=== PATIENT | female | born 2000 | race African-American/Black ===

== ENCOUNTER 2024-02-11 10:59 | Outpatient (CLI) | payer OTHER | END 2024-02-11 11:02 | disposition home or self-care (01) | LOC: PRENATAL 10:59 | PROVIDERS: ATTEND Obstetrics & Gynecology Maternal & Fetal Medicine | DX: O36.80X0 Pregnancy with inconclusive fetal viability, not applicable or unspecified (principal); Z36.82 Encounter for antenatal screening for nuchal translucency; Z36.9 Encounter for antenatal screening, unspecified; Z14.8 Genetic carrier of other disease; Z3A.14 14 weeks gestation of pregnancy ==

== ENCOUNTER 2024-03-24 15:13 | Outpatient (CLI) | payer OTHER | END 2024-03-24 15:14 | disposition home or self-care (01) | LOC: PRENATAL 15:13 | PROVIDERS: ATTEND Obstetrics & Gynecology Maternal & Fetal Medicine | DX: O35.3XX0 Maternal care for (suspected) damage to fetus from viral disease in mother, not applicable or unspecified (principal); O44.00 Complete placenta previa NOS or without hemorrhage, unspecified trimester; Z14.8 Genetic carrier of other disease; Z3A.20 20 weeks gestation of pregnancy ==

== ENCOUNTER 2024-06-15 11:18 | Outpatient (CLI) | payer OTHER | END 2024-06-15 11:22 | disposition home or self-care (01) | LOC: PRENATAL 11:18 | PROVIDERS: ATTEND Obstetrics & Gynecology Maternal & Fetal Medicine | DX: O26.849 Uterine size-date discrepancy, unspecified trimester (principal); O36.8199 Decreased fetal movements, unspecified trimester, other fetus; Z14.8 Genetic carrier of other disease; Z3A.33 33 weeks gestation of pregnancy ==

== ENCOUNTER 2024-07-29 09:30 | Inpatient (IN) | payer OTHER ==
[~2024-07-29] VITALS: Ht 160 cm; Wt 79.8 kg
[2024-07-29 11:09] LABS: URINE APPEARANCE Cloudy; URINE BILIRRUBIN Negative (NEGATIVE); URINE BLOOD Negative; URINE COLOR Yellow; URINE GLUCOSE Negative (NEGATIVE); URINE KETONE Negative (NEGATIVE); URINE LEUKOCYTE Large; URINE NITRATE Negative; URINE PROTEIN Negative (NEGATIVE)
[2024-07-29 11:10] LABS: URINE EPITHELIAL CELLS 108.2 uL (0.0-38.8); URINE RBC 7.5 uL (0.0-20.8); URINE WBC 445.8 uL (0.0-23.2)
[2024-07-29 11:11] LABS: HEMATOCRIT 34.1 % (36.0-45.00); HEMOGLOBIN 11.4 g/dL (12.0-15.00); MEAN CELL VOLUME 85.9 fL (80.00-100.00); MEAN CORPUSCULAR HEMOGLOBIN 28.8 pg (27.00-32.0); MEAN CORPUSCULAR HGB CONC 33.5 g/dl (32.0-36.0); PLATELET COUNT 149 K/uL (150-450); RED BLOOD COUNT 3.97 M/uL (4.00-6.00); RED CELL DISTRIBUTION WIDTH 13.9 % (11.5-14.5)
[2024-07-29 11:30] LABS: INR 0.95; PARTIAL THROMBOPLASTIN TIME 27.2 SECONDS (22.0-34.0); PROTHROMBIN TIME 10.4 SECONDS (9.0-11.5)
[2024-07-29 11:34] LABS: URINE BACTERIA > 9821.5 uL (0.0-1933); URINE CAST 0.14 uL (0.0-1.40); URINE YEAST MANY /hpf
[2024-07-29 12:40] LABS: ALBUMIN 2.7 gm/dL (3.4-5.0); BILIRUBIN TOTAL 0.35 mg/dL (0.3-1.2); CALCIUM 9.2 mg/dL (8.5-10.1); CREATININE SERUM 0.56 mg/dL (0.55-1.02); GFR 135.37; GLOBULINA 3.6 G/DL (2.4-3.5); POTASSIUM 3.82 mEq/L (3.5-5.1); TOTAL PROTEIN 6.3 gm/dL (6.4-8.2)
[2024-07-29 13:13] LABS: RH POSITIVE
[2024-08-03 12:19] VITALS: BP 113/79
[2024-08-03 12:27] VITALS: BP 113/79
[2024-08-03] MEDS ORDERED: CEFAZOLIN SODIUM 1,000 MG VIAL IV SCH (14:15)
[2024-08-03 15:20] VITALS: BP 117/74
[2024-08-03] MEDS ORDERED: ERYTHROMYCIN BASE OPHT 1GM EACH TUBE OP ONE (17:30)
[2024-08-03] MEDS ORDERED: OXYTOCIN 10 UNITS/ML VIAL IV ONE (17:30)
[2024-08-03] MEDS ORDERED: SIMETHICONE 125 MG CAPSULE PO SCH (18:00)
[2024-08-03] MEDS ORDERED: MORPHINE SULFATE 4 MG/ML CARTRIDGE IV PRN (18:00)
[2024-08-03] MEDS ORDERED: KETOROLAC TROMETHAMINE 30 MG VIAL IV SCH (18:00)
[2024-08-03] MEDS ORDERED: ONDANSETRON HCL 2 MG/ML VIAL IV PRN (18:00)
[2024-08-03] MEDS ORDERED: MORPHINE SULFATE 4 MG/ML VIAL IV ONE ×2 (19:15→19:45)
[2024-08-03] MEDS ORDERED: RINGERS SOLUTION,LACTATED 1,000 ML IV SCH (20:15)
[2024-08-03] MEDS ORDERED: METOCLOPRAMIDE HCL 5 MG/ML VIAL IV NR (20:15)
[2024-08-03 22:25] VITALS: BP 137/72
[2024-08-04] VITALS: BP 139/80
[2024-08-04] MEDS ORDERED: ACETAMINOPHEN 325 MG TABLET PO SCH (06:00)
[2024-08-04 06:21] LABS: HEMATOCRIT 32.9 % (36.0-45.00); HEMOGLOBIN 11.4 g/dL (12.0-15.00); MEAN CELL VOLUME 85.4 fL (80.00-100.00); MEAN CORPUSCULAR HEMOGLOBIN 29.7 pg (27.00-32.0); MEAN CORPUSCULAR HGB CONC 34.7 g/dl (32.0-36.0); PLATELET COUNT 136 K/uL (150-450); RED BLOOD COUNT 3.85 M/uL (4.00-6.00); RED CELL DISTRIBUTION WIDTH 14.4 % (11.5-14.5)
[2024-08-04 08:06] VITALS: BP 123/72
[2024-08-04] MEDS ORDERED: DOCUSATE SODIUM 100MG CAP PO SCH (09:00)
[2024-08-04] MEDS ORDERED: IBUprofen 800 MG TABLET PO SCH (09:00)
[2024-08-04 17:04] VITALS: BP 113/69
[2024-08-05] VITALS: BP 131/80
[2024-08-05 08:43] VITALS: BP 104/65
== END 2024-08-05 17:03 | disposition home or self-care (01) | DRG 788 ==
LOC: OB/GYN 08-03 09:30 → LDR 08-03 12:44 → OB/GYN 08-03 12:44 → O/R 08-03 17:18 → OB/GYN 08-03 19:12
PROVIDERS: ADMIT Obstetrics & Gynecology; ATTEND Obstetrics & Gynecology
PROC: 4A1HXCZ Monitoring of Products of Conception, Cardiac Rate, External Approach (ICD-10-PCS; 2024-08-03)
PROC: 10D00Z1 Extraction of Products of Conception, Low, Open Approach (ICD-10-PCS; principal; 2024-08-03 11:00)
DX: O98.32 Other infections with a predominantly sexual mode of transmission complicating childbirth (principal); B07.8 Other viral warts; Z3A.39 39 weeks gestation of pregnancy; Z37.0 Single live birth